=== PATIENT | female | born 1985 | race Caucasian/White ===

== ENCOUNTER 2017-09-23 12:31 | Emergency (ER) | payer SELFPAY ==
--- NOTE | 2017-09-23 12:45 | ER Document Report ---
ED Medical Screen (RME) - General Chief Complaint: Numbness of Face Stated Complaint: FACIAL NUMBNESS Time Seen by Provider: 09/23/17 12:44 Mode of Arrival: Ambulatory Information source: Patient Notes: Patient has history of migraines. She states she occasionally has migraines with aura. Today she began to have a migraine several hours ago. About 1 hour ago she started to have numbness on the right side of her face right arm and her right leg. She states she did recently have a control implant placed and knows that stroke is a possible side effect of this. TRAVEL OUTSIDE OF THE [place] IN LAST 30 DAYS: No - Related Data Allergies/Adverse Reactions: No Known Allergies Allergy (Verified 09/23/17 12:44) Past Medical History - Social History Chew tobacco use (# tins/day): No Frequency of alcohol use: None Drug Abuse: None Renal/ Medical History: Denies: Hx Peritoneal Dialysis Physical Exam - Vital signs Vitals: Temp Pulse Resp BP Pulse Ox 98.6 F 111 H 16 149/95 H 100 09/23/17 12:38 09/23/17 12:38 09/23/17 12:38 09/23/17 12:38 09/23/17 12:38 Course - Vital Signs Vital signs: Temp Pulse Resp BP Pulse Ox 98.6 F 111 H 16 149/95 H 100 09/23/17 12:38 09/23/17 12:38 09/23/17 12:38 09/23/17 12:38 09/23/17 12:38
--- NOTE | 2017-09-23 13:06 | RADIOLOGY REPORT (SQ) ---
EXAM DESCRIPTION: CT HEAD WITHOUT COMPLETED DATE/TIME: 09/23/2017 12:52 pm REASON FOR STUDY: right sided numbness COMPARISON: None. TECHNIQUE: Axial images acquired through the brain without intravenous contrast. Images reviewed wi th bone, brain and subdural windows. Images stored on PACS. All CT scanners at this facility use dose modulation, iterative reconstruction, and/or weight based d osing when appropriate to reduce radiation dose to as low as reasonably achievable (ALARA). [facility]: Dose Right [facility]: CareDose [facility]: Dose Right [facility]: Teradose 4D [facility]: [employer] RADIATION DOSE: CT Rad equipment meets quality standard of care and radiation dose reduction techniq ues were employed. CTDIvol: 64.6 mGy. DLP: 1163 mGy-cm. mGy. LIMITATIONS: None. FINDINGS: VENTRICLES: Normal size and contour. CEREBRUM: No masses. No hemorrhage. No midline shift. No evidence for acute infarction. Normal gra y/white matter differentiation. No areas of low density in the white matter. CEREBELLUM: No masses. No hemorrhage. No alteration of density. No evidence for acute infarction. EXTRAAXIAL SPACES: No fluid collections. No masses. ORBITS AND GLOBE: No intra- or extraconal masses. Normal contour of globe without masses. CALVARIUM: No fracture. PARANASAL SINUSES: No fluid or mucosal thickening. SOFT TISSUES: No mass or hematoma. OTHER: No other significant finding. IMPRESSION: NORMAL BRAIN CT WITHOUT CONTRAST. EVIDENCE OF ACUTE STROKE: NO. COMMENT: Pertinent positive or negative findings of the imaging study reported as a CRITICAL EXAM t o NOHELIA CARBALLO MD at12:55 on 09/23/2017. Category of Critical Exam: Stroke alert Quality ID # [id number]: Final reports with documentation of one or more dose reduction techniques (e.g., Au tomated exposure control, adjustment of the mA and/or kV according to patient size, use of iterative reconstruction technique) TECHNICAL DOCUMENTATION: JOB ID: [id number] [employer]- All Rights Reserved Reading location - IP/workstation name: [email or web address]
--- NOTE | 2017-09-23 13:20 | ER Document Report ---
ED Neuro Symptoms/Deficit - General Chief Complaint: Numbness of Face Stated Complaint: FACIAL NUMBNESS Time Seen by Provider: 09/23/17 12:44 Mode of Arrival: Ambulatory Information source: Patient Notes: 31 years old female with a history of migraine the last one was 2 years ago, on control implant, had an episode of confusion headache and right facial weakness and right upper limb weakness. She kept the migraine variant symptoms in the past 2. Took 2 Advil, by the time she came to the ER she was symptoms free. Currently denies any headache dizziness blurring of vision. Denies any weakness of the upper limbs or lower limbs. Denies any constitutional symptoms TRAVEL OUTSIDE OF THE [place] IN LAST 30 DAYS: No - HPI Patient complains to provider of: Speech Impairment, Weakness. No: Difficulty standing, Difficulty walking, Facial Droop, Falling, Paralysis, Paresthesia, Vision Changes, Other Awoke with symptoms: Yes Symptoms are: No: Constant, Intermittent episodes, Worse/persistent, Noted on awakening Duration: Better. denies: Continues in ED, Gone now, More than 3 hrs Quality of pain: denies: No pain, Achy, Burning, Cramping, Dull, Fullness, Pressure, Sharp, Stabbing, Throbbing, Other Context: denies: None, Insect bite, Tick bite, Falling, Head injury, Other Loss of consciousness: No: No loss of consciousness, Unsure, Dazed, Brief ( seconds), Prolonged (minutes), Still comatose Baseline Cognitive: No: Alert, oriented X 3, Alert but disoriented, Alert but confused, Poor alertness, Memory loss, Unknown Baseline Gait: No: Walks w/o assistance, Uses a cane/walker, Walks only w/ assistance, Stands for transfers, Unable to walk, Unknown Pre-existing weakness: No: Face, General, Hand, Lower extremity, Upper extremity Alert To: No: Name/Voice, Shaking, Light Pain, Deep Pain, No Response Patient Orientation: No: Person, Place, Time, Events Character of altered mental status: No: Agitated, Confused, Combative, Decreased responsiveness, Disoriented, Seizure activity, Trouble concentrating, Unchanged from baseline, Unresponsive New weakness: RUE. denies: LUE, LLE, RLE, L facial, R facial, General (diffuse) Decreased ability to stand/walk: denies: Weak, Difficult, Off balance, Cannot walk, Cannot stand Associated symptoms: denies: None, Chest pain, Back pain, Chills, Dizzy, Falling injury, Fainting, Fever, Headache, Hurts to breathe, Involuntary movements, Lightheadedness, Nausea, Neck pain, Seizure, Short of breath, Sweaty , Vomiting, Other - Related Data Allergies/Adverse Reactions: No Known Allergies Allergy (Verified 09/23/17 12:44) Past Medical History - General Information source: Patient - Social History Smoking Status: Former Smoker Chew tobacco use (# tins/day): No Frequency of alcohol use: None Drug Abuse: None Lives with: Family Family History: Reviewed & Not Pertinent Patient has suicidal ideation: No Patient has homicidal ideation: No Neurological Medical History: Reports: Hx Migraine Renal/ Medical History: Denies: Hx Peritoneal Dialysis Review of Systems - Review of Systems Constitutional: See HPI. denies: No symptoms reported, Chills, Diaphoresis, Fever, Malaise, Weakness, Other, Weight gain, Weight loss, Recent illness EENT: denies: No symptoms reported, See HPI, Eye pain, Eye discharge, Blurred vision, Tearing, Double vision, Ear pain, Ear discharge, Nose pain, Nose congestion, Nose discharge, Sinus pressure, Sinus discharge, Throat pain, Difficulty swallowing, Throat swelling, Mouth pain, Mouth swelling, Dental problem, Vertigo, Other Cardiovascular: denies: No symptoms reported, See HPI, Chest pain, Palpitations , Heart racing, Orthopnea, Dyspnea, Syncope, Dizziness, Lightheaded, Edema, Other, Paroxysmal Nocturnal Dysp Respiratory: denies: No symptoms reported, See HPI, Cough, Hurts to breathe, Hemoptysis, Short of breath, Sputum, Stridor, Wheezing, Other Gastrointestinal: denies: No symptoms reported, See HPI, Abdomen distended, Abdominal pain, Diarrhea, Nausea, Vomiting, Constipation, Blood streaked bowels , Poor appetite, Poor fluid intake, Blood in vomit, Black stools, Rectal bleeding, Last bowel movement, Fecal incontinence, Other Genitourinary: denies: No symptoms reported, See HPI, Burning, Dysuria, Discharge, Frequency, Flank pain, Hematuria, Incontinence, Pain, Urgency, Retention, Other Female Genitourinary: denies: No symptoms reported, See HPI, Last menstrual period, , Post menopausal, Heavy/abnormal periods, Irregular period, Vaginal bleeding, Vaginal discharge, Vaginal odor, Painful intercourse, Other Musculoskeletal: denies: No symptoms reported, See HPI, Back pain, Gout, Joint pain, Joint swelling, Muscle pain, Muscle stiffness, Neck pain, Deformity, Leg swelling, Ankle swelling, Other Neurological/Psychological: See HPI Physical Exam - Vital signs Vitals: Temp Pulse Resp BP Pulse Ox 98.6 F 111 H 16 149/95 H 100 09/23/17 12:38 09/23/17 12:38 09/23/17 12:38 09/23/17 12:38 09/23/17 12:38 - Notes Notes: PHYSICAL EXAMINATION: GENERAL: Well-appearing, well-nourished and in no acute distress. HEAD: Atraumatic, normocephalic. EYES: Pupils equal round and reactive to light, extraocular movements intact, conjunctiva are normal. ENT: Nares patent, oropharynx clear without exudates. Moist mucous membranes. NECK: Normal range of motion, supple without lymphadenopathy LUNGS: Breath sounds clear to auscultation bilaterally and equal. No wheezes rales or rhonchi. HEART: Regular rate and rhythm without murmurs ABDOMEN: Soft, nontender, nondistended abdomen. No guarding, no rebound. No masses appreciated. Female : deferred Musculoskeletal: Normal range of motion, no pitting or edema. No cyanosis. NEUROLOGICAL: Cranial nerves grossly intact. Normal speech, normal gait. Normal sensory, motor exams. No focal neurological deficit PSYCH: Normal mood, normal affect. SKIN: Warm, Dry, normal turgor, no rashes or lesions noted. Course - Re-evaluation Re-evalutation: 09/23/17 13:18 Uneventful - Vital Signs Vital signs: Temp Pulse Resp BP Pulse Ox 98.6 F 111 H 16 149/95 H 100 09/23/17 12:38 09/23/17 12:38 09/23/17 12:38 09/23/17 12:38 09/23/17 12:38 - Diagnostic Test Radiology reviewed: Reports reviewed - CT of the head reported by radiologist as normal - EKG Interpretation by Nd EKG shows normal: Sinus rhythm Rate: Normal Rhythm: NSR When compared to previous EKG there are: No significant change - Normal sinus rhythm at the rate of 97 bpm normal axis no acute ST elevation ST depression T- wave inversion noted. 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
[2017-09-23 13:47] VITALS: BP 107/70
--- NOTE | 2017-09-23 20:05 | EKG REPORT ---
SEVERITY:- NORMAL ECG - SINUS RHYTHM : Confirmed by: Lamonte Rodriguez MD 23-Sep-2017 20:05:15
== END 2017-09-23 13:29 | disposition home or self-care (01) ==
LOC: ER 12:31
DX: G43.409 Hemiplegic migraine, not intractable, without status migrainosus (principal); R20.0 Anesthesia of skin; R47.89 Other speech disturbances; R53.1 Weakness; Z87.891 Personal history of nicotine dependence
CPT/HCPCS: 36415; 70450; 93005; 93010; 99284